=== PATIENT | female | born 1995 | race Asian ===

== ENCOUNTER 2022-04-24 09:40 | Emergency (ER) | payer BC, OTHER ==
[~2022-04-24] VITALS: Ht 170.1 cm; Wt 54.9 kg
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
[2022-04-24] MEDS ORDERED: cefTRIAXone 2,000 MG in NS (IVPB) 50 ML IV ONE (10:15)
[2022-04-24 10:56] LABS: BASOPHILS % (AUTO) 0 % (0-10); EOSINOPHILS % (AUTO) 0 % (0-10); HEMATOCRIT 38 % (35-52); HEMOGLOBIN 12.5 g/dL (11.5-16.0); LYMPHOCYTES % (AUTO) 9 % (12-44); MEAN CORPUSCULAR HEMOGLOBIN 30 pg (25-34); MEAN CORPUSCULAR HGB CONC 33 g/dL (32-36); MEAN CORPUSCULAR VOLUME 88 fL (80-99); MEAN PLATELET VOLUME 9.6 fL (9.0-12.2); MONOCYTES # (AUTO) 0.8 10^3/uL (0.0-1.0); MONOCYTES % (AUTO) 8 % (0-12); NEUTROPHILS # (AUTO) 8.7 10^3/uL (1.8-7.8); NEUTROPHILS % (AUTO) 83 % (42-75); PLATELET COUNT 152 10^3/uL (130-400); WHITE BLOOD COUNT 10.6 10^3/uL (4.3-11.0)
[2022-04-24] MEDS ORDERED: cefTRIAXone 1,000 MG VIAL IM ONE ×2 (11:00)
[2022-04-24] MEDS ORDERED: LIDOCAINE 1% INJ 20 ML VIAL INJ ONE ×2 (11:00)
[2022-04-24 11:17] LABS: BILIRUBIN,TOTAL 0.5 MG/DL (0.1-1.0); CALCIUM 9.6 MG/DL (8.5-10.1); CREATININE SERUM 0.66 MG/DL (0.60-1.30); POTASSIUM 3.6 MMOL/L (3.6-5.0)
[2022-04-24 11:18] LABS: ALBUMIN 4.3 GM/DL (3.2-4.5); TOTAL PROTEIN 7.5 GM/DL (6.4-8.2)
[2022-04-24] MEDS ORDERED: CEPH500T PO (11:23)
[2022-04-24 11:28] VITALS: BP 97/58
== END 2022-04-24 11:28 | disposition home or self-care (01) ==
LOC: ER FS 09:41
DX: L03.211 Cellulitis of face (principal)
CPT/HCPCS: 36415; 80053; 83605; 85025; 86141